=== PATIENT | female | born 1995 | race Caucasian/White ===

== ENCOUNTER 2017-01-01 05:58 | Day surgery (SDC) | payer OTHER ==
[~2017-01-01] VITALS: Ht 162.6 cm; Wt 51.3 kg
[2017-01-01] MEDS ORDERED: IBUPROFEN 800 MG TAB PO PRN (07:45)
[2017-01-01] MEDS ORDERED: ONDANSETRON 4 MG/2 ML VIAL IVP PRN ×2 (07:45→08:45)
[2017-01-01] MEDS ORDERED: ACETAMINOPHEN/CODEINE 300/30MG 1 TAB PO PRN (07:45)
[2017-01-01] MEDS ORDERED: MORPHINE SULFATE 4 MG/ML SYR IM/IVP PRN (07:45)
[2017-01-01] MEDS ORDERED: MARIJUANA PO (07:46)
[2017-01-01] MEDS ORDERED: BIRTH CONTROL (07:46)
[2017-01-01] MEDS ORDERED: SEVOFLURANE 250 ML BTL INH ONE (08:21)
[2017-01-01] MEDS ORDERED: PROPOFOL 200 MG/20 ML VIAL IV ONE (08:21)
[2017-01-01] MEDS ORDERED: MIDAZOLAM 2 MG/2 ML VIAL ONE (08:35)
[2017-01-01] MEDS ORDERED: HYDROmorphone 1 MG/ML AMP IVP PRN (08:45)
== END 2017-01-01 11:00 | disposition home or self-care (01) ==
LOC: MDS 05:58 → MMU 05:59 → MDS 11:00
PROVIDERS: ATTEND Obstetrics & Gynecology
DX: N87.9 Dysplasia of cervix uteri, unspecified (principal); I11.9 Hypertensive heart disease without heart failure; E11.22 Type 2 diabetes mellitus with diabetic chronic kidney disease; N18.9 Chronic kidney disease, unspecified; D64.9 Anemia, unspecified; G40.909 Epilepsy, unspecified, not intractable, without status epilepticus; E66.3 Overweight; J45.909 Unspecified asthma, uncomplicated; K21.9 Gastro-esophageal reflux disease without esophagitis
CPT/HCPCS: 57522; J2250; J2704; J7030; J7120